=== PATIENT | female | born 1960 | race Caucasian/White ===

== ENCOUNTER 2016-12-17 08:59 | Inpatient (IN) | payer BC ==
[~2016-12-17] VITALS: Ht 177.8 cm; Wt 73.5 kg
--- NOTE | ~2016-12-17 | EKG ---
[address] [address] ELECTROCARDIOGRAM REPORT Name: CHARLEEN MELCHOR Room #: 434-P ADM IN M.R.#: [id number] Admission: 12/17/16 Attend Phys: Kip Duke MD Discharge: Date of : 64 Report #: [id number] THIS REPORT FOR: //name// [facility] ED Test Date: 2016-12-17 Test Time: 10:20:01 Pat Name: CHARLEEN MELCHOR Department: Room: 434 Gender: F Website Developer: : 1960 Requested By: Janine Bond Order Number: [id number] MD: Gray Castillo Measurements Intervals [place] Rate: 47 P: 78 NH: 196 QRS: 75 QRSD: 104 T: 58 QT: 433 QTc: 383 Interpretive Statements Sinus bradycardia ST elev, probable normal early repol pattern Compared to ECG 12/11/2000 12:55:06 ST (T wave) deviation now present Electronically Signed On 12-17-2016 13:24:02 CDT by Gray Castillo [email or web address] <ELECTRONICALLY SIGNED> By: Gray Castillo MD 12/17/16 1324 1020 1020 Gray Castillo MD /ESTEFANIA
[2016-12-17 09:00] VITALS: BP 144/73
[2016-12-17] MEDS ORDERED: LEVOTHYROXIN0.075 MG PO (09:24)
[2016-12-17 10:41] LABS: ABSOLUTE NEUTROPHILS 7.7 thou/uL (1.4-8.2); BASOPHILS 0.3 % (0.0-2.0); EOSINOPHILS 0.7 % (0.0-3.0); HEMATOCRIT 41.1 % (37.0-47.0); HEMOGLOBIN 13.9 gm/dL (12.0-15.0); LYMPHOCYTES 9.7 % (24.0-44.0); MCH 31.9 pg (26.0-34.0); MCHC 33.9 g/dL (28.0-37.0); MONOCYTES 4.4 % (1.0-8.0); PLATELET COUNT 227 thou/uL (150-400); POLYS 84.9 % (36.0-66.0); RBC 4.37 mil/uL (4.20-5.00); WBC 9.1 thou/uL (4.0-11.0)
[2016-12-17 10:42] LABS: MANUAL DIFF NO
[2016-12-17 11:13] LABS: CALCIUM 8.8 mg/dL (8.5-10.1); CREATININE 0.9 mg/dL (0.6-1.0); POTASSIUM 4.4 mmol/L (3.5-5.1)
[2016-12-17 11:16] VITALS: BP 139/81
[2016-12-17 11:18] LABS: ALBUMIN 3.8 g/dL (3.4-5.0); TOTAL BILIRUBIN 0.4 mg/dL (<0.1-1.0)
[2016-12-17 12:00] VITALS: BP 130/71
[2016-12-17 16:00] VITALS: BP 121/60
[2016-12-17 19:20] VITALS: BP 102/60
[2016-12-18 03:55] VITALS: BP 101/62
[2016-12-18 08:37] VITALS: BP 112/62
[2016-12-18 15:31] VITALS: BP 105/56
[2016-12-18 20:43] VITALS: BP 111/62
[2016-12-19] MEDS ORDERED: DOXYCYCLINE 10100 MG PO (00:34)
[2016-12-19] MEDS ORDERED: ASPIR 8181 MG PO (00:36)
[2016-12-19 04:21] VITALS: BP 125/75
[2016-12-19] MEDS ORDERED: IBUPROFEN 600600 M1 PO (09:22)
[2016-12-19] MEDS ORDERED: PERCOCET PO (09:24)
[2016-12-19] MEDS ORDERED: ACETAMINOPHEN325 M1 PO (09:24)
[2016-12-19 10:25] VITALS: BP 125/75
== END 2016-12-19 10:45 | disposition home or self-care (01) | DRG 185 ==
LOC: ER 08:59 → EROBS 10:33 → 4S 10:33
PROVIDERS: Internal Medicine; Physician Assistant
PROC: 0HQ1XZZ Repair Face Skin, External Approach (ICD-10-PCS; principal; 2016-12-17)
DX: S22.20XA Unspecified fracture of sternum, initial encounter for closed fracture (principal); S01.81XA Laceration without foreign body of other part of head, initial encounter; E03.9 Hypothyroidism, unspecified; S80.211A Abrasion, right knee, initial encounter; W18.39XA Other fall on same level, initial encounter; Y92.480 Sidewalk as the place of occurrence of the external cause; Z90.49 Acquired absence of other specified parts of digestive tract; Y93.89 Activity, other specified; Y99.8 Other external cause status; Z79.899 Other long term (current) drug therapy; Z23 Encounter for immunization
CPT/HCPCS: 10102